=== PATIENT | male | born 1940 | race Caucasian/White ===

== ENCOUNTER 2019-06-07 17:08 | Observation (INO) | payer MEDICARE, SELFPAY ==
[2019-06-07] VITALS (8 sets, daily range): BP systolic 126–148; BP diastolic 66–91; PULSE 61–77; RESP 15–17; TEMP 36.4–36.5; O2SAT 95–99; BMI 34.4; BMI 34.2
--- NOTE | 2019-06-07 17:44 | RAD_ITS ---
STUDY: X-RAY CHEST REASON FOR EXAM: Male, 78 years old. Increased weakness and near syncope TECHNIQUE: Single frontal view of the chest. COMPARISON: None. FINDINGS: Sternotomy wires and mediastinal clips. Left lower lobe airspace disease and effusion. There is no demonstrated pleural abnormality. Normal size heart. Normal mediastinum and eulalia. Normal visualized pulmonary arteries. Normal visualized aortic arch and descending thoracic aorta. Normal visualized thoracic spine. Normal visualized ribs, clavicles, and shoulders. There is no demonstrated abnormality of the visualized soft tissue structures of the upper abdomen. RAD/Chest 1 View (Portable) IMPRESSION: Left lower lobe airspace disease and effusion Electronically Signed: Elmer Peng MD at 19:06 EST , Service support ,
--- NOTE | 2019-06-07 17:45 | EKG12_ITS ---
Test Reason : WEAKNESS Blood Pressure : / mmHG Vent. Rate : 062 BPM Atrial Rate : 062 BPM P-R Int : 200 ms QRS Dur : 156 ms QT Int : 462 ms P-R-T Axes : 035 -16 141 degrees QTc Int : 468 ms Normal sinus rhythm Left bundle branch block Abnormal ECG Confirmed by BERNA VEGA, JED ([id number]), index editor ALEJANDRA MALIK ([id number]) on 06/09/2019 2:29:49 PM Referred By: Cris Perez Confirmed By:JED CORONEL MD
--- NOTE | 2019-06-07 17:47 | ED.DCSUM_ITS ---
- ER Visit Summary Date of Service: 06/07/19 Chief Complaint: Near syncope History of Present Illness: The patient is a 78 M presenting after near syncopal episode. Patient states he has felt generally weak and fatigued today. He states he has felt this way in the past before requiring stents. His last s tents were several years ago. He complains of intermittent bilateral hand and feet tingling which is not a new complaint today. He denies chest pain, he states he has never had chest pain with his MIs. He denies fever or cough. Denies other complaints. Physical Examination: Vitals are stable. Patient is afebrile. Alert no acute distress. HEENT exam is unremarkable. Neck is supple. Lungs are clear and equal bilaterally. Heart is regular rate and rhythm. Abdomen is soft nontender nondistended. Extremities symmetric edema Skin is warm and dry. No focal neurologic deficit. Remainder of exam is unremarkable. Emergency Department Course and Treatment: EKG is sinus left bundle branch block. Chest x-ray shows cardiomegaly. CBC, chemistries unremarkable other than BUN 28. Troponin is negative. Patient is resting comfortably on reevaluation. Discussed with the hospitalist for observation. Disposition: Observation Impression: Near syncope This note was generated with [employer] dictation software. It may contain incorrect words, spelling, and punctuation that were not noted in review of the chart prior to signing ED Disposition - Plan for ED Patient: Referrals: [facility] Doctor,Out of [NON-STAFF] -
[2019-06-07 18:03] LABS: Absolute Lymphocyte Count 1.05 X10^3/uL (0.83-4.51); Absolute Neutrophil Count 6.5 X10^3/uL (2.0-7.7); Basophil# 0.03 X10^3/uL; Basophil% 0.4 % (0-1); Eosinophil# 0.05 X10^3/uL; Eosinophils% 0.6 % (0-5); Hematocrit 36.8 % (40-54); Lymphocyte # 1.05 X10^3/ul (4.0); Lymphocyte % 12.5 % (19-41); Mean Corp Hgb Conc 32.6 g/dL (32-36); Mean Corpuscular Hgb 35.4 pg (27.0-32.0); Mean Corpuscular Volume 108.6 fL (80-94); Mean Platelet Vol. 10.7 fl (6.2-12.0); Monocyte# 0.74 X10^3/uL; Monocyte% 8.8 % (0-10); NRBC Flagged by Analyzer 0.4 % (0-5); Neutrophil # 6.51 X10^3/uL (2.7-7.7); Neutrophil % 77.3 % (47-70); Platelet Count 236 K/mm3 (150-450); RBC Distribution Width CV 13.5 % (11.6-14.6); RBC Distribution Width SD 54.2 fl (35.1-43.9); Red Blood Count 3.39 M/mm3 (4.6-6.2); White Blood Count 8.4 K/mm3 (4.4-11.0)
[2019-06-07 18:30] LABS: Anion Gap 6 (5-15); BUN 28 mg/dL (7-18); BUN/Creat Ratio 23.3 RATIO (10-20); Calcium,Total 8.5 mg/dL (8.5-10.1); Chloride 115 mmol/L (98-107); EST Glomerular Filtration Rate 62 mL/min (>60); Est Glom Filt Rate - Afr Amer 75 mL/min (>60); Estimated Creatinine Clearance 56.58 ml/min; Glucose 92 mg/dL (74-106); Potassium 4.5 mmol/L (3.5-5.1); Sodium Level 143 mmol/L (136-145)
--- NOTE | 2019-06-07 18:40 | PCM.HP.STD ---
Problem List (1) Near syncope Status: Acute (2) CAD (coronary artery disease) Status: Chronic Qualifiers: Coronary Disease-Associated Artery/Lesion type: unspecified vessel or lesion type [place] vs. transplanted heart: unspecified whether [place] or transplanted heart Associated angina: angina presence unspecified Qualified Code(s): I25.10 - Atherosclerotic heart disease of [place] coronary artery without angina pectoris (3) S/P CABG x 3 Status: Chronic (4) HTN (hypertension) Status: Chronic Qualifiers: Hypertension type: essential hypertension Qualified Code(s): I10 - Essential (primary) hypertension (5) HLD (hyperlipidemia) Status: Chronic Qualifiers: Hyperlipidemia type: unspecified Qualified Code(s): E78.5 - Hyperlipidemia, unspecified (6) Obesity (BMI 30.0-34.9) Status: Chronic History of Present Illness Date of Admission: 06/07/19 Chief Complaint: Weakness, Fatigue, Near Syncope The patient is a 78 y/o M w/ PMHx: Chronic usage of a wheeled walker, CAD s/p CABG x 3 and PCI, HTN, HLD, CHF unclear type, Chronic BL Hand and Toe Paresthesias, Obesity who presents to the [facility] ED On 06/07/19 with history of weakness and fatigue w/ near syncopal event, occurred upon seated to standing position with concurrent sensation of pressure in his bilateral neck region as well as left hand paresthesias which again he does have chronically but normally this occurs with certain activities and this was different from his baseline, specifically occurring as he was attempting to start to use his wheeled walker with lightheadedness and dizziness, notes this has how he has felt prior to PCI/CABG needs, follows at [facility] for his cardiac care. He denies any specific chest pain, dyspnea. Work-up in the ED included T 97.5, heart rate 75, BP 140/66, respiratory rate 17, 97% room air, CBC with WBC 8.4, hemoglobin 12, platelet 236 without market shift, BMP with chloride 115, BUN/creatinine 28/1.20, troponin less than 0.015, EKG with sinus rhythm with left bundle branch block with no acute evidence of ischemia chest x-ray with no acute cardiopulmonary findings. Past Medical History Past Medical History (Chronic Problems): Chronic Problems CAD (coronary artery disease) (Chronic) S/P CABG x 3 (Chronic) HTN (hypertension) (Chronic) HLD (hyperlipidemia) (Chronic) Obesity (BMI 30.0-34.9) (Chronic) Allergies No Known Allergies Allergy (Verified 06/07/19 17:10) Home Medications: Ambulatory Orders Medication Instructions Recorded Amlodipine [Norvasc] 10 mg PO DAILY 06/07/19 Aspirin 81 mg PO DAILY 06/07/19 Atorvastatin Calcium [Lipitor] 80 mg PO QHS 06/07/19 Clopidogrel Bisulfate [Clopidogrel] 75 mg PO DAILY 06/07/19 Hydrochlorothiazide 12.5 mg PO DAILY 06/07/19 Isosorbide Mononitrate [Imdur] 60 mg PO DAILY 06/07/19 Lisinopril [Zestril] 40 mg PO DAILY 06/07/19 Metoprolol(XL)Succ [Toprol Xl 50 mg PO DAILY 06/07/19 (Beta Jack)] Surgical History: - - PCI x3 most recent 2 to 3 years prior, CABG times 09/2000, bilateral total knee replacement. Psychiatric History: No pertinent psych hx Lives: Alone Smoking Status: Never smoker Tobacco Use: Non-smoker Alcohol: None Drugs: None - *Family History Maternal History Items: Heart Disease, Hypertension Paternal History Items: Heart Disease, Hypertension Review of Systems Constitutional: Reports: Malaise, Weakness, Fatigue. Denies: Anorexia, Chills, Fever, Weight Change HEENT: Denies: Head Aches, Sinus Congestion, Sinus Drainage Cardiovascular: Reports: Light Headedness, Syncope, - - Fullness to bilateral upper neck region which he states has been similar to prior presentation prior to PCI, CABG needs.. Denies: Chest Pain, Chest Pressure, Chest Tightness, Orthopnea, Palpitations Respiratory: Denies: Cough, Shortness of Breath, Shortness of breath at rest, Shortness of breath upon exertion, Sputum production, Wheezing Gastrointestinal: Denies: Abdominal Pain, Nausea, Vomiting Genitourinary: Denies: Dysuria Musculoskeletal: Reports: - - Neck fullness, - - Left upper extremity paresthesias. Denies: Joint Pain, Joint Tenderness Skin: Denies: Rash, Wounds Neurological: Reports: Tingling. Denies: Focal weakness, Numbness Psychiatric: Denies: Anxiety, Depression, Homicidal Ideations, Suicidal Ideations Hematologic/ Lymphatic: Reports: Easy Bruising, Easy Bleeding VTE Information - Inpt Only VTE Present on Admission: No VTE Mechan Device Prophylaxis: SCD's VTE Pharm Prophylaxis ordered?: Yes Patient Problems: Active and Suspected Problems Near syncope (Acute) Subjective: Seated upright in ED bed, notes no sensation of near syncope at this time but states he does have a fullness sensation in his throat but difficulty describing level of severity, no current paresthesias to left hand. Objective: Physical Examination: General: awake, alert, oriented x 3 and cooperative, seated upright in the ED bed in no apparent distress. Skin: normal color, turgor, no icterus, cyanosis. HEENT: AT/NC, EOMI, PERRLA, mildly dry MM, no carotid bruits or JVD noted; however, habitus makes examination difficult. Lungs: CTA bilaterally, moderate effort, mild decrease BL bases, no rales, ronchi or wheezing. Heart: Mildly bradycardic with regular rhythm; no gallop, rub audible. Abdomen: soft, obese, NTTP, ND, normal BS, no HSM. Extremities: no cyanosis, clubbing, bilateral lower extremity ankle to distal scott edema, right greater than left which he notes is chronic following CABG harvesting. Neurological: patient awake, alert, oriented x 3; cognitive function intact; pupils equally reactive to light and accomodation; cranial nerves II-XII grossly normal, moving all 4 extremities, no focal deficits, strength moderately to severely global decrease secondary to acute presentation. Psychiatric: affect appears fatigued, no acute evidence of depressive or anxiety feelings. - Physical Exam Vitals/I&O's: Vital Signs Temp Pulse Resp BP Pulse Ox 97.5 F L 66 16 148/66 H 97 06/07/19 17:10 06/07/19 17:40 06/07/19 17:40 06/07/19 17:10 06/07/19 18:28 Oxygen Delivery Method Nasal Cannula Weight: 254 lb 3.088 oz Body Mass Index (BMI) 34.4 Laboratory Results 06/07/19 17:58: WBC 8.4, RBC 3.39 L, Hgb 12.0 L, Hct 36.8 L, MCV 108.6 H, MCH 35.4 H, MCHC 32.6, RDW Std Deviation 54.2 H, RDW Coeff of Sarah 13.5, Plt Count 236, MPV 10.7, Immature Gran % (Auto) 0.400, Neut % (Auto) 77.3 H, Lymph % (Auto) 12.5 L, [place] % (Auto) 8.8, Eos % (Auto) 0.6, Baso % (Auto) 0.4, Absolute Neuts (auto) 6.5, Absolute Lymphs (auto) 1.05, Nucleated RBC % 0.4 06/07/19 17:58: Sodium 143, Potassium 4.5, Chloride 115 H, Carbon Dioxide 22.0, Anion Gap 6, BUN 28 H, Creatinine 1.20, Estim Creat Clear Calc 56.58, Est GFR (MDRD) Af Amer 75, Est GFR (MDRD) Non-Af 62, BUN/Creatinine Ratio 23.3 H, Glucose 92, Calcium 8.5, Troponin I < 0.015 Assessment/Plan All Active Problems Near syncope (Acute) The patient is a 78 y/o M w/ PMHx: CAD s/p CABG x 3 and PCI, HTN, HLD, CHF unclear type, Obesity who presents to the [facility] ED On 06/07/19 with history of weakness and fatigue w/ near syncopal event, occurred upon seated to standing position with concurrent sensation of pressure in his bilateral neck region as well as left hand paresthesias which again he does have chronically but normally this occurs with certain activities and this was different from his baseline, specifically occurring as he was attempting to start to use his wheeled walker with lightheadedness and dizziness. (1) Near Syncopal Event: Unclear etiology, EKG in ED w/ sinus rhythm without evidence of acute ischemia, CXR w/ no acute cardiopulmonary findings, initial trop normal. Will admit to PCU, place on a monitored bed to assure no acute myocardial infarction with serial cardiac enzymes and EKGs. Will maintain on fall precautions, obtain admission orthostatic and AM orthostatic VS and increase hydration if appropriate, obtain ECHO. Given history with fatigue, malaise presentation with ACS events will also obtain stress testing. PT/OT consultation to ascertain stability and discharge needs. FLP in am. Mag pending. ASA, NG, morphine. (2) CAD: Status post CABG x3 and PCI, continue home aspirin, Plavix, lisinopril, metoprolol, isosorbide. (3) Hypertension: Continue home regimen including Norvasc, hydrochlorthiazide, isosorbide, lisinopril, metoprolol, PRN hydralazine. (4) Hyperlipidemia: Continue home statin regimen. AM FLP. (5) Obesity: Weight loss and lifestyle changes encouraged. (6) CHF, unclear type: Patient notes CHF history, unclear type, appears compensated, maintain on aspirin, Plavix, lisinopril, metoprolol, hydrochlorothiazide. (7) JACK: CPAP q HS. (8) DVT prophylaxis: SCDs, Lovenox. (9) CODE status: Patient notes that his daughter is his decision-maker but he does not have a healthcare power of business attorney nor living will set up. Discussed CODE status at length including difference between FULL code, DNR-CCA and DNR-CC status. Following discussions about the differences in these status, requested full code status but states that he does not want to be on prolonged care if futile. Advanced Care Planning Face to Face Time: 16 minutes. Code Visit OBSV E&M: 46788 Initial observation care L3 Procedures: 53322 Advncd Care Plan 30 Min
--- NOTE | 2019-06-07 19:38 | ECHOCS_ITS ---
Reason For Study: SYNCOPE/NEAR SYNCOPE Procedure This was a 2D Doppler, Color Flow transthoracic echocardiogram. Exam performed portable in patient room. Left Ventricle Normal LV size. Moderate concentric left ventricular hypertrophy. Left ventricular systolic function is lower limits of normal. The estimated ejection fraction is 50 %. Septal motion consistent with IVCD. Right Ventricle Normal RV size. Normal systolic function. Atria Normal left atrium. Normal right atrium. Tricuspid Valve Normal tricuspid valve. Mild (1+) tricuspid valve insufficiency. Pulmonary artery systolic pressure is 24 mmHg. Aortic Valve The aortic valve is not well visualized. Mild focal aortic valve calcification. Pulmonic Valve The pulmonic valve is not well visualized. Great Vessels Normal aortic root. The pulmonary artery is normal size. Normal inferior vena cava. Pericardium/Pleural No pericardial effusion. Medication Diluted definity 2ml given slow IV push to enhance endocardial definition. MMode/2D Measurements & Calculations LVIDd: 4.1 cm IVSd: 1.6 cm LVOT diam: 2.0 cm LVIDs: 2.9 cm LVPWd: 1.5 cm LVOT area: 3.1 cm2 RVDd: 3.4 cm FS: 29.4 % Ao root diam: 3.2 cm LAV(MOD-bp): 37.5 ml LVAd ap4: 34.3 cm2 LAV(MOD-bp) Indexed: 15.9 ml/m2 EDV(MOD-sp4): 118.5 ml LAV(MOD-sp2): 37.1 ml EDV(sp4-el): 125.0 ml LAV(MOD-sp4): 34.7 ml LVAs ap4: 19.7 cm2 ESV(MOD-sp4): 48.2 ml ESV(sp4-el): 49.6 ml EF(MOD-sp4): 59.3 % EF(sp4-el): 60.3 % SV(MOD-sp4): 70.3 ml SV(sp4-el): 75.4 ml LA A4 area: 14.2 cm2 LA dimension(2D): 4.0 cm RA A4 area: 11.4 cm2 Time Measurements MV dec time: 0.29 sec Doppler Measurements & Calculations MV E max kodi: 59.0 cm/sec Lat Peak E' Kodi: 8.0 cm/sec Med Peak E' Kodi: 6.5 cm/sec MV A max kodi: 75.4 cm/sec E/E' lat: 7.4 E/E' med: 9.1 MV E/A: 0.78 Ao V2 max: 275.4 cm/sec LV V1 max: 124.1 cm/sec SV(LVOT): 87.8 ml Ao max P.3 mmHg LV V1 max P.2 mmHg Ao V2 mean: 192.4 cm/sec LV V1 mean P.2 mmHg Ao mean P.9 mmHg LV V1 mean: 82.5 cm/sec Ao V2 VTI: 57.5 cm LV V1 VTI: 28.1 cm ANTON(I,D): 1.5 cm2 ANTON(V,D): 1.4 cm2 PA V2 max: 115.1 cm/sec TR max kodi: 230.7 cm/sec TR max P.3 mmHg Interpretation Summary Normal LV size. Left ventricular systolic function is lower limits of normal. The estimated ejection fraction is 50 %. Moderate concentric left ventricular hypertrophy. Mild focal aortic valve calcification. Contrast injection was performed. Ordering Physician: Cris Perez Referring Physician: Cris Perez Performed By: Ting Andrew RDCS
[2019-06-07 20:01] LABS: Magnesium 1.7 mg/dL (1.6-2.6)
[2019-06-07] MEDS: 0.9% Normal Saline 1,000 ML 100 ML IV (21:00)
[2019-06-07] MEDS: Atorvastatin Calcium 80 MG Tablet PO (22:05)
--- NOTE | 2019-06-07 22:17 | CPS ---
Pt wishes not to wear PAP at this time
[2019-06-08] VITALS (13 sets, daily range): BP systolic 114–163; BP diastolic 58–79; PULSE 62–74; RESP 16; TEMP 36.6–37; O2SAT 94–96
[2019-06-08 04:06] LABS: Absolute Neutrophil Count 3.2 X10^3/uL (2.0-7.7); Basophil# 0.02 X10^3/uL; Basophil% 0.4 % (0-1); Eosinophil# 0.17 X10^3/uL; Hematocrit 35.9 % (40-54); Hemoglobin 11.2 g/dL (13.0-16.5); Lymphocyte % 28.4 % (19-41); Mean Corp Hgb Conc 31.2 g/dL (32-36); Mean Corpuscular Hgb 35.2 pg (27.0-32.0); Mean Corpuscular Volume 112.9 fL (80-94); Mean Platelet Vol. 11.1 fl (6.2-12.0); Monocyte# 0.61 X10^3/uL; Monocyte% 10.8 % (0-10); NRBC Flagged by Analyzer 0.4 % (0-5); Neutrophil # 3.23 X10^3/uL (2.7-7.7); Neutrophil % 57.2 % (47-70); Platelet Count 208 K/mm3 (150-450); RBC Distribution Width CV 13.7 % (11.6-14.6); RBC Distribution Width SD 55.8 fl (35.1-43.9); Red Blood Count 3.18 M/mm3 (4.6-6.2); White Blood Count 5.6 K/mm3 (4.4-11.0)
[2019-06-08 04:11] LABS: International Normalized Ratio 1.1; Prothrombin Time (Protime)PT. 14.2 SECONDS (11.7-14.9)
[2019-06-08 04:12] LABS: Partial Thromboplast Time 34.7 Seconds (24.1-36.2)
[2019-06-08 04:24] LABS: Anion Gap 7 (5-15); BUN 26 mg/dL (7-18); BUN/Creat Ratio 26.4 RATIO (10-20); Calcium,Total 8.3 mg/dL (8.5-10.1); Chloride 114 mmol/L (98-107); Cholesterol 73 mg/dL (200); Creatinine, Serum 0.98 mg/dL (0.70-1.30); EST Glomerular Filtration Rate 78 mL/min (>60); Est Glom Filt Rate - Afr Amer 95 mL/min (>60); Estimated Creatinine Clearance 69.29 ml/min; Glucose 89 mg/dL (74-106); High Density Lipoprotein 35 mg/dL; Potassium 4.3 mmol/L (3.5-5.1); Sodium Level 143 mmol/L (136-145); Triglycerides 99 mg/dL; Very Low Density Lipoprotein 20 mg/dL (5-40)
--- NOTE | 2019-06-08 05:55 | EKG12_ITS ---
Test Reason : AM EKG Blood Pressure : / mmHG Vent. Rate : 070 BPM Atrial Rate : 070 BPM P-R Int : 212 ms QRS Dur : 152 ms QT Int : 448 ms P-R-T Axes : 048 008 167 degrees QTc Int : 483 ms Sinus rhythm with 1st degree A-V block Left bundle branch block Abnormal ECG When compared with ECG of 07-JUN-2019 17:51, MANUAL COMPARISON REQUIRED, DATA IS UNCONFIRMED Confirmed by RAKESH RANGEL ([id number]), metropolitan editor ALEJANDRA MALIK ([id number]) on 06/12/2019 11:34:37 AM Referred By: Cris Perez Confirmed By:RAKESH RANGEL
[2019-06-08] MEDS: Clopidogrel Bisulfate 75 MG Tablet PO (06:26)
[2019-06-08] MEDS: Lisinopril 40 MG Tablet PO (06:26)
[2019-06-08] MEDS: Aspirin 81 MG TAB.CHEW PO (06:26)
--- NOTE | 2019-06-08 13:05 | PCM.DC ---
- Discharge Diagnoses Current Active Problems: Current Active and Chronic Problems Near syncope (Acute) CAD (coronary artery disease) (Chronic) S/P CABG x 3 (Chronic) HTN (hypertension) (Chronic) HLD (hyperlipidemia) (Chronic) Obesity (BMI 30.0-34.9) (Chronic) You will use the following diet at home:: Cardiac Discharge Activity: Return to Normal Activity Call your doctor if you observe: Shortness of breath, Dizziness, Fainting spells, Chest pain Allergies/Adverse Reactions: Allergies No Known Allergies Allergy (Verified 06/07/19 17:10) Medications to take at Discharge Amlodipine [Norvasc] 10 mg PO DAILY 06/07/19 Aspirin 81 mg PO DAILY 06/07/19 Atorvastatin Calcium [Lipitor] 80 mg PO QHS 06/07/19 Clopidogrel Bisulfate [Clopidogrel] 75 mg PO DAILY 06/07/19 Hydrochlorothiazide 12.5 mg PO DAILY 06/07/19 Isosorbide Mononitrate [Imdur] 60 mg PO DAILY 06/07/19 Lisinopril [Zestril] 40 mg PO DAILY 06/07/19 Metoprolol(XL)Succ [Toprol Xl (Beta Jack)] 50 mg PO DAILY 06/07/19 Primary Care Physician: [facility] Doctor,Out of [NON-STAFF] - Please follow up with your Primary Care Physician in: 1 Week Test Results: Test results from this visit will be discussed in further detail at your follow-up appointment, if applicable. Please Follow Up With: Primary spanish literature professor, SHAY When: As scheduled 06/18/2019 Proposed Discharge Date: 06/08/19
[2019-06-08] MEDS: hydroCHLOROthiazide 12.5mg 12.5 MG PO (13:39)
[2019-06-08] MEDS: Enoxaparin 40 MG/0.4 ML Syringe SC (13:39)
[2019-06-08] MEDS: Metoprolol(XL)Succ 50 MG Tablet PO (13:39)
[2019-06-08] MEDS: Isosorbide Mononitrate 60 MG Tablet PO (13:39)
[2019-06-08] MEDS: amLODIPine 10 MG Tablet PO (13:39)
--- NOTE | 2019-06-08 13:39 | STRESSREP ---
Stress Test Report Pharmacologic myocardial perfusion stress test. 78-year-old man with a history of coronary artery bypass surgery status post previous PCI. Stress protocol: Resting EKG demonstrates normal sinus rhythm with a rate of 68 bpm. Left bundle branch block is noted. Resting blood pressures 152/84 mmHg. 0.4 mg of regadenoson was infused per usual protocol followed by rapid intravenous saline flush injection. The maximum heart rate attained was 81 bpm which was 56% of maximum predicted heart rate the maximum workload was 1 metabolic equivalent. Patient maintained sinus rhythm throughout the recording with a left bundle branch block pattern. No changes were noted. The resting blood pressure was 152/84 with a final blood pressure 132/74 mmHg. Myocardial perfusion protocol. 14.2 mCi of technetium 99m sestamibi was injected at rest. 0.4 mg of regadenoson was infused per usual protocol peak infusion 44.8 mCi of technetium 99m sestamibi was injected stress images were obtained stress and rest images were reconstructed and compared in the short axis vertical and horizontal long axis. Gated images were also obtained per Perfusion SPECT analysis: Review of the stress images demonstrate normal uptake of tracer noted in all areas of myocardium the rest images similar demonstrate normal uptake of tracer noted in all areas of myocardium. No areas of reversibility are noted suggest ischemia. No obvious ischemia was noted. Gated SPECT analysis: The gated ejection fraction is noted to be 67%. Conclusion: Normal pharmacologic myocardial perfusion stress test. Preserved ejection fraction.
--- NOTE | 2019-06-08 13:55 | PCM.DC.SUM ---
<Suze Gonzalez - Last Filed: 06/08/19 14:11> Discharge Date and Diagnosis Date of Admission: 06/07/19 Date of Discharge: 06/08/19 - Primary Discharge Diagnosis Active and Suspected Problems 1. Near syncope, vasovagal 2. CAD status post CABG x3 and PCI 3. Hypertension 4. Hyperlipidemia 5. Obesity 6. Chronic diastolic CHF 7. JACK - Secondary Discharge Diagnosis Chronic Problems CAD (coronary artery disease) (Chronic) S/P CABG x 3 (Chronic) HTN (hypertension) (Chronic) HLD (hyperlipidemia) (Chronic) Obesity (BMI 30.0-34.9) (Chronic) Hospital Course and Treatment Imaging Results: Diagnostic Data Chest X-Ray 06/07/19 17:44 IMPRESSION: Left lower lobe airspace disease and effusion Electronically Signed: Elmer Peng MD at 19:06 EST , Service support , Operations: None Procedures: 2-D Echocardiogram, Stress test Summary of Care Provided: The patient is a 78 year old M admitted 06/07/2018 due to weakness, fatigue and near syncope. 1. Near syncope, vasovagal-EKG without ST-T changes. Initial troponin negative, did have slight increase in troponin however enzymes did not trend. Orthostatic vitals negative. Patient underwent nuclear stress test which was negative for ischemia, EF 67%. Echocardiogram completed, report pending and will be reviewed prior to discharge. Patient follows with [facility] cardiology as he resides in [place]. Patient has upcoming follow-up with cardiology 06/18/2019. Follow-up with primary care provider in 1 week. 2. CAD status post CABG x3 and PCI-negative stress test as noted above. Continue aspirin, statin, isosorbide, beta-jack, lisinopril. 3. Hypertension-stable, continue amlodipine, hydrochlorothiazide, isosorbide, lisinopril, metoprolol. Consider discontinuing HCTZ however will leave this to primary votator machine operator. 4. Hyperlipidemia-continue statin. 5. Obesity-encouraged diet and lifestyle modifications. 6. Chronic diastolic CHF-no acute exacerbation. EF 67% per stress test. Echo report pending. 7. JACK-continue home CPAP regimen. Patient seen and examined prior to discharge. Physical assessment as noted above. Patient is stable for discharge with follow up recommendations as noted above. This patient was seen by ELI Loo under the supervision of Dr. Lam. - Physical Exam Vitals/I&O's: Vital Signs Temp Pulse Resp BP Pulse Ox 98.2 F 66 16 114/58 L 96 06/08/19 07:34 06/08/19 13:39 06/08/19 07:34 06/08/19 13:39 06/08/19 07:34 Oxygen Delivery Method Room Air Weight: 252 lb 3.341 oz Body Mass Index (BMI) 34.2 Orthostatic Vital Signs Start: 06/07/19 22:07 Freq: q24h Status: Active Protocol: Activity Type Activity Date Activity User E-Sign Co-Sign Detail Recorded Client Recorded Date Recorded By Document 06/08/19 06:30 CM [id number] 06/08/19 06:38 CM 06/08/19 06:30 Orthostatic Vitals Standing -Blood Pressure (90/60-120/80) 157/79 H -Extremity Use Left Arm -Pulse Rate (60-100) 74 Sitting -Blood Pressure (90/60-120/80) 146/79 H -Extremity Use Left Arm -Pulse Rate (60-100) 72 Lying -Blood Pressure (90/60-120/80) 147/71 H -Extremity Use Left Arm -Pulse Rate (60-100) 68 Intake and Output for Last 24 Hours 06/06/19 06/07/19 06/08/19 23:59 23:59 23:59 Intake Total 536.67 / 536.67 373.33 / 373.33 Balance 536.67 / 536.67 373.33 / 373.33 General: Alert, Oriented x3, Cooperative HEENT: Atraumatic, PERRLA, EOMI, Normocephalic Neck: Supple, No JVD, Negative Carotid Bruits Lungs: Clear to auscultation, Normal air movement Cardiovascular: Regular rate, Regular Rhythm, Normal S1, Normal S2, Murmur Abdomen: Bowel Sounds Present, Soft, Non Tender, Non-Distended, Obese Extremities: No clubbing, No cyanosis, No edema, Capillary Refill Less than 3 Seconds Skin: No rashes, No breakdown Musculoskeletal: No Tenderness to Palpation of Joints or Extremities Neurological: Cranial nerves II-XII grossly intact, Neuro grossly intact Psych/Mental Status: Normal Affect, Appropriate Laboratory Results 06/07/19 17:58: WBC 8.4, RBC 3.39 L, Hgb 12.0 L, Hct 36.8 L, MCV 108.6 H, MCH 35.4 H, MCHC 32.6, RDW Std Deviation 54.2 H, RDW Coeff of Sarah 13.5, Plt Count 236, MPV 10.7, Immature Gran % (Auto) 0.400, Neut % (Auto) 77.3 H, Lymph % (Auto) 12.5 L, [place] % (Auto) 8.8, Eos % (Auto) 0.6, Baso % (Auto) 0.4, Absolute Neuts (auto) 6.5, Absolute Lymphs (auto) 1.05, Nucleated RBC % 0.4 06/07/19 17:58: Sodium 143, Potassium 4.5, Chloride 115 H, Carbon Dioxide 22.0, Anion Gap 6, BUN 28 H, Creatinine 1.20, Estim Creat Clear Calc 56.58, Est GFR (MDRD) Af Amer 75, Est GFR (MDRD) Non-Af 62, BUN/Creatinine Ratio 23.3 H, Glucose 92, Calcium 8.5, Troponin I < 0.015 06/07/19 17:58: Magnesium 1.7 06/07/19 21:26: Troponin I 0.064 H 06/08/19 00:06: Troponin I 0.077 H 06/08/19 03:48: WBC 5.6, RBC 3.18 L, Hgb 11.2 L, Hct 35.9 L, MCV 112.9 H, MCH 35.2 H, MCHC 31.2 L, RDW Std Deviation 55.8 H, RDW Coeff of Sarah 13.7, Plt Count 208, MPV 11.1, Immature Gran % (Auto) 0.200, Neut % (Auto) 57.2, Lymph % (Auto) 28.4, [place] % (Auto) 10.8 H, Eos % (Auto) 3.0, Baso % (Auto) 0.4, Absolute Neuts (auto) 3.2, Absolute Lymphs (auto) 1.60, Nucleated RBC % 0.4 06/08/19 03:48: PT 14.2, INR 1.1, APTT 34.7 06/08/19 03:48: Sodium 143, Potassium 4.3, Chloride 114 H, Carbon Dioxide 22.0, Anion Gap 7, BUN 26 H, Creatinine 0.98, Estim Creat Clear Calc 69.29, Est GFR (MDRD) Af Amer 95, Est GFR (MDRD) Non-Af 78, BUN/Creatinine Ratio 26.4 H, Glucose 89, Calcium 8.3 L, Triglycerides 99, Cholesterol 73, LDL Cholesterol 18, VLDL Cholesterol 20, HDL Cholesterol 35 L 06/08/19 03:48: Troponin I 0.074 H Current Medications Acetaminophen (Tylenol) 650 mg PO Q6H PRN PRN PRN Reason: Non-cardiac pain (mod-severe) Al Hydroxide/Mg Hydroxide (Mylanta Ii) 15 - 30 ml PO Q4H PRN PRN PRN Reason: INDIGESTION Albuterol Sulfate (Ventolin Aerosols) 2.5 mg INHALATION Q2H PRN PRN PRN Reason: dyspnea, wheezing Amlodipine Besylate (Norvasc) 10 mg PO DAILY [facility] Last Admin: 06/08/19 13:39 Dose: 10 mg Documented by: Aspirin (Aspirin, Baby) 81 mg PO DAILYCM [facility] Last Admin: 06/08/19 06:26 Dose: 81 mg Documented by: Atorvastatin Calcium (Lipitor) 80 mg PO QHS [facility] Last Admin: 06/07/19 22:05 Dose: 80 mg Documented by: Clopidogrel Bisulfate (Plavix) 75 mg PO DAILY [facility] Last Admin: 06/08/19 06:26 Dose: 75 mg Documented by: Dextrose (D50w Syringe) 0 gm IV X1 PRN; Protocol PRN Reason: Hypoglycemia Enoxaparin Sodium (Lovenox) 40 mg SC DAILY@1000 [facility] Last Admin: 06/08/19 13:39 Dose: 40 mg Documented by: Glucagon () 1 mg IM .X1 PRN PRN Reason: Hypoglycemia Hydralazine HCl (Apresoline Iv) 10 mg IV Q4H PRN PRN PRN Reason: SBP > 160 Hydrochlorothiazide () 12.5 mg PO DAILY [facility] Last Admin: 06/08/19 13:39 Dose: 12.5 mg Documented by: Sodium Chloride () 1,000 mls @ 100 mls/hr IV .Q10H [facility] Last Infusion: 06/08/19 06:25 Dose: 100 mls/hr Documented by: Sodium Chloride () 250 mls @ 15 mls/hr IV .[id number] PRN PRN Reason: Saline Flush Isosorbide Mononitrate (Imdur) 60 mg PO DAILY [facility] Last Admin: 06/08/19 13:39 Dose: 60 mg Documented by: Lisinopril (Zestril) 40 mg PO DAILY [facility] Last Admin: 06/08/19 06:26 Dose: 40 mg Documented by: Magnesium Hydroxide (Milk Of Magnesia) 30 ml PO DAILY PRN PRN Reason: Constipation Melatonin (Melatonin) 3 mg PO QHS PRN PRN PRN Reason: INSOMNIA Metoprolol Succinate (Toprol Xl (Beta Jack)) 50 mg PO DAILY [facility] Last Admin: 06/08/19 13:39 Dose: 50 mg Documented by: Morphine Sulfate () 1 - 2 mg IV Q4H PRN PRN PRN Reason: Pain Score 1-10/10 Nitroglycerin (Nitrostat) 0.4 mg SUBLINGUAL Q5M PRN PRN Reason: CARDIAC/CHEST PAIN Ondansetron HCl (Zofran) 4 mg IV Q8H PRN PRN PRN Reason: NAUSEA/VOMITING Sodium Chloride () 10 - 40 ml IV UD PRN PRN Reason: SALINE FLUSH Discharge Diet: Low fat/ Low Cholesterol Discharge Activity: Return to Normal Activity Call your doctor if you observe: Shortness of breath, Dizziness, Fainting spells, Chest pain Home Medications: Medications to take at Discharge Amlodipine [Norvasc] 10 mg PO DAILY 06/07/19 Aspirin 81 mg PO DAILY 06/07/19 Atorvastatin Calcium [Lipitor] 80 mg PO QHS 06/07/19 Clopidogrel Bisulfate [Clopidogrel] 75 mg PO DAILY 06/07/19 Hydrochlorothiazide 12.5 mg PO DAILY 06/07/19 Isosorbide Mononitrate [Imdur] 60 mg PO DAILY 06/07/19 Lisinopril [Zestril] 40 mg PO DAILY 06/07/19 Metoprolol(XL)Succ [Toprol Xl (Beta Jack)] 50 mg PO DAILY 06/07/19 Primary Care Physician: [facility] Doctor,Out of [NON-STAFF] - Please follow up with your Primary Care Physician in: 1 Week Please Follow Up With: Primary votator machine operatorSHAY When: As scheduled 06/18/2019 Disposition: Home Minutes spent on discharge:: 35 Patient Condition:: Stable Medical Necessity - Tobacco Use Smoking Status: Never smoker Tobacco Use: Non-smoker Meaningful Use Info Meaningful Use Diagnoses (Choose all that apply): None applicable <Scooter Lam - Last Filed: 06/08/19 18:11> Discharge Date and Diagnosis - Secondary Discharge Diagnosis Chronic Problems CAD (coronary artery disease) (Chronic) S/P CABG x 3 (Chronic) HTN (hypertension) (Chronic) HLD (hyperlipidemia) (Chronic) Obesity (BMI 30.0-34.9) (Chronic) Hospital Course and Treatment Summary of Care Provided: The patient is a 78 year old M [] - Physical Exam Vitals/I&O's: Vital Signs Temp Pulse Resp BP Pulse Ox 98.4 F 66 16 114/58 L 96 06/08/19 17:22 06/08/19 17:22 06/08/19 17:22 06/08/19 17:22 06/08/19 17:22 Oxygen Delivery Method Room Air Weight: 252 lb 3.341 oz Body Mass Index (BMI) 34.2 Intake and Output for Last 24 Hours 06/06/19 06/07/19 06/08/19 23:59 23:59 23:59 Intake Total 536.67 / 536.67 373.33 / 373.33 Balance 536.67 / 536.67 373.33 / 373.33 Laboratory Results 06/07/19 17:58: Sodium 143, Potassium 4.5, Chloride 115 H, Carbon Dioxide 22.0, Anion Gap 6, BUN 28 H, Creatinine 1.20, Estim Creat Clear Calc 56.58, Est GFR (MDRD) Af Amer 75, Est GFR (MDRD) Non-Af 62, BUN/Creatinine Ratio 23.3 H, Glucose 92, Calcium 8.5, Troponin I < 0.015 06/07/19 17:58: Magnesium 1.7 06/07/19 21:26: Troponin I 0.064 H 06/08/19 00:06: Troponin I 0.077 H 06/08/19 03:48: WBC 5.6, RBC 3.18 L, Hgb 11.2 L, Hct 35.9 L, MCV 112.9 H, MCH 35.2 H, MCHC 31.2 L, RDW Std Deviation 55.8 H, RDW Coeff of Sarah 13.7, Plt Count 208, MPV 11.1, Immature Gran % (Auto) 0.200, Neut % (Auto) 57.2, Lymph % (Auto) 28.4, [place] % (Auto) 10.8 H, Eos % (Auto) 3.0, Baso % (Auto) 0.4, Absolute Neuts (auto) 3.2, Absolute Lymphs (auto) 1.60, Nucleated RBC % 0.4 06/08/19 03:48: PT 14.2, INR 1.1, APTT 34.7 06/08/19 03:48: Sodium 143, Potassium 4.3, Chloride 114 H, Carbon Dioxide 22.0, Anion Gap 7, BUN 26 H, Creatinine 0.98, Estim Creat Clear Calc 69.29, Est GFR (MDRD) Af Amer 95, Est GFR (MDRD) Non-Af 78, BUN/Creatinine Ratio 26.4 H, Glucose 89, Calcium 8.3 L, Triglycerides 99, Cholesterol 73, LDL Cholesterol 18, VLDL Cholesterol 20, HDL Cholesterol 35 L 06/08/19 03:48: Troponin I 0.074 H Code Visit Addendum: Dr. Lam I personally examined the patient and reviewed the chart. I agree with the above. 78-year-old male with a history of coronary artery disease status post CABG x3 as well as stents. He has all of his cardiology care done up at [facility] in [place], but presented with an episode of dizziness yesterday. 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 It would resolve after a few minutes however it became more some form and so he presented to the hospital. He denies any chest pain or shortness of breath currently. He denies any lightheadedness or dizziness. His initial troponin was negative and then peaked at 0.077 with a decrease to 0.074. He had a nuclear stress test today which was completely normal and he had an echo with an EF of 50% without any wall motion abnormality. I explained to him that he has a follow-up with his votator machine operator as an outpatient and since his cardiac function appears to be stable and he has an outpatient and if the determine the need, can proceed with a cardiac cath at the facility that he has had them done previously. He expressed understanding of the plan and agreed with it. OBSV E&M: [id number] Observation care discharge
--- NOTE | 2019-06-08 14:12 | PHA.DC.MR ---
Pharmacy Service has performed discharge medication reconciliation for this patient. Home Medications Amlodipine [Norvasc] 10 mg PO DAILY 06/07/19 Aspirin 81 mg PO DAILY 06/07/19 Atorvastatin Calcium [Lipitor] 80 mg PO QHS 06/07/19 Clopidogrel Bisulfate [Clopidogrel] 75 mg PO DAILY 06/07/19 Hydrochlorothiazide 12.5 mg PO DAILY 06/07/19 Isosorbide Mononitrate [Imdur] 60 mg PO DAILY 06/07/19 Lisinopril [Zestril] 40 mg PO DAILY 06/07/19 Metoprolol(XL)Succ [Toprol Xl (Beta Jack)] 50 mg PO DAILY 06/07/19 The patient's discharge medication list was reviewed for discrepancies and discrepancies were resolved.
== END 2019-06-08 13:54 | disposition home or self-care (01) ==
LOC: ED 18:03 → PCU 19:05
PROVIDERS: Hospitalist; Admitting Provider Family Medicine; Emergency Provider Emergency Medicine; Referring Provider Family Medicine; Visit Provider Family Medicine
DX: R55 Syncope and collapse (principal); I25.10 Atherosclerotic heart disease of native coronary artery without angina pectoris; E78.5 Hyperlipidemia, unspecified; E66.9 Obesity, unspecified; I11.0 Hypertensive heart disease with heart failure; G47.33 Obstructive sleep apnea (adult) (pediatric); I50.32 Chronic diastolic (congestive) heart failure; Z95.1 Presence of aortocoronary bypass graft; Z79.899 Other long term (current) drug therapy; Z79.82 Long term (current) use of aspirin; Z79.02 Long term (current) use of antithrombotics/antiplatelets; Z68.34 Body mass index [BMI] 34.0-34.9, adult; Z71.3 Dietary counseling and surveillance
CPT/HCPCS: 36415; 71045; 78452; 80048; 80061; 83735; 84484; 85025; 85610; 85730; 93005; 93017; 93306; 96360; 96361; 96372; 97802; 99218; 99285; A9500; J7030; Q9957; A4216; C8929; G0378; J2785